=== PATIENT | male | born 2000 | race Caucasian/White ===

== ENCOUNTER 2018-07-24 02:06 | Emergency (ER) | payer OTHER ==
[~2018-07-24] VITALS: Ht 195.6 cm; Wt 120.2 kg
--- OUTSIDE RECORDS SUMMARY | 2018-07-24 02:12 | XMS REPORT | Referral Summary ---
Author Author [facility] Organization [facility] Address Unknown Phone Unavailable Care Team Providers Care Optical Fabricator Name Role Phone Karrie Corcoran PCP Encounter VC Date(s): 03/10/16 - 03/10/16 [facility] [address] [place] [address] Discharge Diagnosis: Well adolescent visit Discharge Disposition: 01-Home or Self Care Attending Physician: Karrie Corcoran MD Vital Signs Most recent to 1 oldest [Reference Range]: Peripheral Pulse 100 bpm Rate [55-90 bpm] *HI* (03/10/16 2:18 PM) Blood Pressure 122/82 mmHg [90-138/45-84 mmHg] (03/10/16 2:18 PM) SpO2 95 % (03/10/16 2:18 PM) Problem List Condition Effective Dates Status Health Status Informant Chicken 10/2006 Resolved pox(Confirmed) Distal radius 04/05/13 Resolved fracture, right(Confirmed) Obesity(Confirmed) Active patient Overweight(Confirmed Resolved ) Allergies, Adverse Reactions, Alerts No Known Allergies Medications Mobic Oral, Daily, 0 Refill(s) Start Date: 03/10/16 Status: Ordered Results No data available for this section Immunizations Vaccine Date Refusal Reason tetanus/diphth/pertuss (Tdap) adult/adol 03/10/10 diphtheria/pertussis, whole cell/tetanus 02/24/04 diphtheria/pertussis, whole cell/tetanus 10/22/99 diphtheria/pertussis, whole cell/tetanus 01/27/99 diphtheria/pertussis, whole cell/tetanus 98 diphtheria/pertussis, whole cell/tetanus 98 haemophilus b conjugate (HbOC) vaccine 08/02/99 haemophilus b conjugate (HbOC) vaccine 01/27/99 haemophilus b conjugate (HbOC) vaccine 98 hepatitis A pediatric vaccine 03/26/13 hepatitis A pediatric vaccine 03/13/12 hepatitis B pediatric vaccine 01/27/99 hepatitis B pediatric vaccine 98 hepatitis B pediatric vaccine 98 human papillomavirus vaccine 03/10/16 influenza virus vaccine, live 08/30/12 measles/mumps/rubella virus vaccine 02/24/04 measles/mumps/rubella virus vaccine 08/02/99 meningococcal conjugate vaccine1 03/23/15 meningococcal conjugate vaccine 03/10/10 meningococcal group B vaccine 03/10/16 poliovirus vaccine, inactivated 02/24/04 poliovirus vaccine, inactivated 10/22/99 poliovirus vaccine, inactivated 98 poliovirus vaccine, inactivated 98 rotavirus vaccine 01/27/99 rotavirus vaccine 98 varicella virus vaccine 08/02/99 1Early/Late Reason: Other : Procedures Procedure Date Related Diagnosis Body Site Ear tubes 09/1999 Tonsillectomy Social History Social History Type Response Smoking Status Never smoker Assessment and Plan Extracted from: Title: 15 YR CPE Author: Karrie Corcoran MD Date: 03/10/16 Assessment/Plan 1.Well adolescent visit Routine health and safety issues were discussed , including seat belts, improving his diet, exercise, dental care, and adolescent behavior. He received Bexsero and Gardasil. Next dose is due in 2 months, 1 month for Bexsero. We talked at length about the need to avoid many health problems with better attention to nutrition. Sports form was signed without restrictions. I will see him back next year. Ordered: Periodic Comp Preventive Med 12 to 17 years Est [address]141 Immunization due
--- OUTSIDE RECORDS SUMMARY | 2018-07-24 02:12 | XMS REPORT | Referral Summary ---
Author Author [facility] Organization [facility] Address Unknown Phone Unavailable Care Team Providers Care Bottle Labeler Name Role Phone Karrie Corcoran PCP Encounter VC Date(s): 08/24/15 - 08/24/15 [facility] [address] [place], [place] [address] Discharge Diagnosis: Melanocytic nevus of face Discharge Disposition: 01-Home or Self Care Attending Physician: Randall Kruger MD Admitting Physician: Randall Kruger MD Referring Physician: Karrie Corcoran MD Vital Signs No data available for this section Problem List Condition Effective Dates Status Health Status Informant Chicken 10/2006 Resolved pox(Confirmed) Distal radius 04/05/13 Resolved fracture, right(Confirmed) Obesity(Confirmed) Active patient Overweight(Confirmed Resolved ) Allergies, Adverse Reactions, Alerts No Known Allergies Medications Mobic Oral, Daily, 0 Refill(s) Start Date: 08/05/15 Status: Ordered Results No data available for [...] vaccine 98 hepatitis B pediatric vaccine 98 influenza virus vaccine, live 08/30/12 measles/mumps/rubella virus vaccine 02/24/04 measles/mumps/rubella virus vaccine 08/02/99 meningococcal conjugate vaccine1 03/23/15 meningococcal conjugate vaccine 03/10/10 poliovirus vaccine, inactivated 02/24/04 poliovirus vaccine, inactivated 10/22/99 poliovirus vaccine, inactivated 98 poliovirus vaccine, inactivated 98 rotavirus vaccine 01/27/99 rotavirus vaccine 98 varicella virus vaccine 08/02/99 1Early/Late Reason: Other : Procedures Procedure Date Related Diagnosis Body Site Excision, other benign lesion including 08/24/15 margins, except skin tag (unless listed elsewhere), face, ears, eyelids, nose, lips, mucous membrane; excised diameter 1.1 to 2.0 cm Repair, intermediate, wounds of face, ears, 08/24/15 eyelids, nose, lips and/or mucous membranes; 2.6 cm to 5.0 cm Ear tubes 09/1999 Tonsillectomy Social History Social History Type Response Smoking Status Never smoker Assessment and Plan Extracted from: Title: Office Visit Note Author: Randall Kruger MD Date: 08/24/15 Assessment/Plan 1.Melanocytic nevus of face Here for excision of the changing and dark nevus on the right jawline. I excised the 1 cm lesionwith 2 mm margins for an excised diameter 1.4 cm in greatest dimension. I did an intermediate layered closure with buried 4-0 Vicryl and top5-0 Prolene with a final wound repair length of 3cm. He'll follow-up in one week for suture removal or sooner for problems Options/risks/benefits of the procedure were discussed and explained and consent was obtained. Specifically discussed risks of scarring, abnormal scarring, skin changes such as color or texture changes, recurrence, incomplete removal, bleeding, infection, need for further treatment, and other unexpected risks/outcomes of these types of skin procedures. Final timeout performed. Site(s) for excision were prepared by cleaning and injecting each site with < 5cc of buffered lidocaine with epi 1:100,000. Site was excised with margins with scalpel/scissors/forceps in usual fashion to the level of the subcutaneous fat. Wound edges were undermined. Hemostasis was obtained with hyfrecation as needed. Layered closure was performed with buried absorbable dermal sutures extending to the deeper subcutaneous tissue and top nonabsorbable sutures. Ointment and bandages placed where needed. Wound care instructions given. Ordered: Exc Dony Les Face Ear Nose 1.1-2.0cm 77883 Intermediate Repair Wounds; Face Ears Eyelids Nose Lips 2.6-5.0cm [id number]
--- OUTSIDE RECORDS SUMMARY | 2018-07-24 02:12 | XMS REPORT | Referral Summary ---
Author Author [facility] Organization [facility] Address Unknown Phone Unavailable Care Team Providers Care Record Maker Name Role Phone Karrie Corcoran PCP Encounter VC Date(s): 08/05/15 - 08/05/15 [facility] [address] [place], [place] [address] Discharge Diagnosis: Melanocytic nevi of face Discharge Disposition: 01-Home or Self [...] Visit Note Author: Randall Kruger MD Date: 08/05/15 Assessment/Plan 1.Melanocytic nevi of face We discussed options andopted for excisional biopsyof the larger darker lesion on the right jawline. He schedule a 30 minute excision slot Ordered: Office Visit Level 2 [facility] [id number]
--- OUTSIDE RECORDS SUMMARY | 2018-07-24 02:12 | XMS REPORT | Referral Summary ---
Author Author [facility] Organization [facility] Address Unknown Phone Unavailable Care Team Providers Care Pharmaceutical Laboratory Technician Name Role Phone Karrie Corcoran PCP Encounter VC Date(s): 03/23/15 - 03/23/15 [facility] [address] [place], [place] [address] Discharge Diagnosis: Need for meningococcal vaccination Discharge Diagnosis: Well child check Discharge Disposition: 01-Home or Self Care Attending Physician: Karrie Corcoran MD Admitting Physician: Karrie Corcoran MD Referring Physician: Karrie Corcoran MD Vital Signs Most recent to 1 oldest [Reference Range]: Blood Pressure 121/80 mmHg [90-138/45-84 mmHg] (03/23/15 2:17 PM) Problem List Condition Effective Dates Status [...] smoker Assessment and Plan Extracted from: Title: 14 YR CPE Author: Karrie Corcoran MD Date: 03/23/15 Assessment/Plan 1.Well child check Routine health and safety issues were discussed, including the need for wearing his seatbelt all times in the car. Home safety , adolescent issues, diet, and dental care. He received Menveo today. When football starts, his acne will likely worsen, so I urged him to use his medication every day. Otherwise I have no concerns, and we'll see him yearly or as needed. Ordered: Periodic Comp Preventive Med 12 to 17 years Est [address] Need for meningococcal vaccination
--- OUTSIDE RECORDS SUMMARY | 2018-07-24 02:12 | XMS REPORT | Referral Summary ---
Author Author [facility] Organization [facility] Address Unknown Phone Unavailable Care Team Providers Care Cranberry Grower Name Role Phone Karrie Corcoran PCP Encounter VC Date(s): 07/08/16 - 07/08/16 [facility] [address] [place] [address] [facility] Discharge Disposition: 01-Home or Self Care Attending Physician: Nader Young Attending Physician: Provider, Immediate Care Admitting Physician: Provider, Immediate Care Vital Signs Most recent to 1 oldest [Reference Range]: Peripheral Pulse 79 bpm Rate [55-90 bpm] (07/08/16 5:49 PM) Blood Pressure 159/75 mmHg [90-138/45-84 mmHg] *HI* (07/08/16 5:49 PM) SpO2 97 % (07/08/16 5:49 PM) Problem List Condition Effective Dates Status Health Status Informant Chicken 10/2006 Resolved pox(Confirmed) Distal radius 04/05/13 Resolved fracture, right(Confirmed) Obesity(Confirmed) Active patient Overweight(Confirmed Resolved ) Allergies, Adverse Reactions, Alerts No Known Allergies Medications erythromycin 0.5% ophthalmic ointment 0.5 inch, Eye-Right, QID, X 7 days, # 3 g, 0 Refill(s) Start Date: 07/08/16 Stop Date: 07/15/16 Status: Ordered Mobic Oral, Daily, 0 Refill(s) Start Date: 03/10/16 Status: Ordered Lacon 5 mg-325 mg oral tablet 1 tabs, Oral, q6hr, X 2 days, # 8 tabs, 0 Refill(s) Start Date: 07/08/16 Stop Date: 07/10/16 Status: Ordered Results No data available for [...] Smoking Status Never smoker Assessment and Plan No data available for this section
--- OUTSIDE RECORDS SUMMARY | 2018-07-24 02:12 | XMS REPORT | Referral Summary ---
Author Author [facility] Organization [facility] Address Unknown Phone Unavailable Encounter VC TIERNEY [id number] Date(s): 08/09/17 - 08/09/17 [facility] [address] [place] [address] [facility] Discharge Diagnosis: Otitis externa Discharge Disposition: 01-Home or Self Care Attending Physician: Provider, Immediate Care Admitting Physician: Provider, Immediate Care Vital Signs Most recent to 1 oldest [Reference Range]: Temperature Oral 36.6 degC [35.8-37.3 degC] (08/09/17 6:27 PM) Peripheral Pulse 91 bpm Rate [60-100 bpm] (08/09/17 6:27 PM) Blood Pressure 120/78 mmHg [90-140/60-90 mmHg] (08/09/17 6:27 PM) SpO2 96 % (08/09/17 6:27 PM) Problem List Condition Effective Dates Status Health Status Informant Chicken 10/2006 Resolved pox(Confirmed) Distal radius 04/05/13 Resolved fracture, right(Confirmed) Obesity(Confirmed) Active patient Overweight(Confirmed Resolved ) Allergies, Adverse Reactions, Alerts No Known Allergies Medications Maxitrol ophthalmic suspension See Instructions, 3 drops right ear BID x 10 day, # 5 mL, 0 Refill(s) Start Date: 08/09/17 Status: Ordered Results No data available for this section Immunizations Given and Recorded Vaccine Date Status Refusal Reason human papillomavirus vaccine 03/10/16 Given meningococcal group B vaccine 03/10/16 Given meningococcal conjugate vaccine1 03/23/15 Given meningococcal conjugate vaccine 03/10/10 Given hepatitis A pediatric vaccine 03/26/13 Given hepatitis A pediatric vaccine 03/13/12 Given influenza virus vaccine, live 08/30/12 Given tetanus/diphth/pertuss (Tdap) adult/adol 03/10/10 Recorded poliovirus vaccine, inactivated 02/24/04 Recorded poliovirus vaccine, inactivated 10/22/99 Given poliovirus vaccine, inactivated 98 Given poliovirus vaccine, inactivated 98 Recorded diphtheria/pertussis, whole cell/tetanus 02/24/04 Recorded diphtheria/pertussis, whole cell/tetanus 10/22/99 Recorded diphtheria/pertussis, whole cell/tetanus 01/27/99 Recorded diphtheria/pertussis, whole cell/tetanus 98 Recorded diphtheria/pertussis, whole cell/tetanus 98 Recorded measles/mumps/rubella virus vaccine 02/24/04 Given measles/mumps/rubella virus vaccine 08/02/99 Given varicella virus vaccine 08/02/99 Given haemophilus b conjugate (HbOC) vaccine 08/02/99 Given haemophilus b conjugate (HbOC) vaccine 01/27/99 Given haemophilus b conjugate (HbOC) vaccine 98 Given rotavirus vaccine2 01/27/99 Given rotavirus vaccine 01/27/99 Given rotavirus vaccine 98 Given rotavirus vaccine3 98 Given hepatitis B pediatric vaccine 01/27/99 Given hepatitis B pediatric vaccine 98 Given hepatitis B pediatric vaccine 98 Given 1Early/Late Reason: Other : 2Result Comment: [08/04/2014 Uncharted] Duplicate - DP 3Result Comment: [08/04/2014 Uncharted] Abstracting Error - DP Procedures Procedure Date Related Diagnosis Body Site Ear tubes 09/1999 Tonsillectomy Social History Social History Type Response Smoking Status Never smoker entered on: 08/05/15 Assessment and Plan Extracted from: Title: Office Visit Note Author: Bharath La MD Date: 08/09/17 Otitis externa Maxitrol drops (3) BID x 10 days. RTC in 1 week to assess for resolution or sooner. All questions answered and patient and/or guardian voice understanding. With hx of q-tip use could also be associated with trauma. Ordered: Office Visit Level 3 Est 386[address]
--- OUTSIDE RECORDS SUMMARY | 2018-07-24 02:12 | XMS REPORT | Referral Summary ---
Author Author [facility] Organization [facility] Address Unknown Phone Unavailable Care Team Providers Care Fastener Technologist Name Role Phone Karrie Corcoran PCP Encounter VC Date(s): 02/13/17 - 02/13/17 [facility] [address] [place], [place] [address] Discharge Diagnosis: Elbow tendonitis Discharge Disposition: 01-Home or Self Care Attending Physician: Jackie Cheung APRN Admitting Physician: Jackie Cheung APRN Vital Signs Most recent to 1 oldest [Reference Range]: Peripheral Pulse 88 bpm Rate [60-100 bpm] (02/13/17 2:14 PM) Blood Pressure 120/78 mmHg [90-140/60-90 mmHg] (02/13/17 2:14 PM) SpO2 94 % (02/13/17 2:14 PM) Problem List Condition Effective Dates Status Health Status Informant Chicken 10/2006 Resolved pox(Confirmed) Distal radius 04/05/13 Resolved fracture, right(Confirmed) Obesity(Confirmed) Active patient Overweight(Confirmed Resolved ) Allergies, Adverse Reactions, Alerts No Known Allergies Medications No Known Medications Results No data available for this section Immunizations Given and Recorded Vaccine Date Status Refusal Reason tetanus/diphth/pertuss (Tdap) adult/adol 03/10/10 Recorded diphtheria/pertussis, whole cell/tetanus 02/24/04 Recorded diphtheria/pertussis, whole cell/tetanus 10/22/99 Recorded diphtheria/pertussis, whole cell/tetanus 01/27/99 Recorded diphtheria/pertussis, whole cell/tetanus 98 Recorded diphtheria/pertussis, whole cell/tetanus 98 Recorded haemophilus b conjugate (HbOC) vaccine 08/02/99 Given haemophilus b conjugate (HbOC) vaccine 01/27/99 Given haemophilus b conjugate (HbOC) vaccine 98 Given hepatitis A pediatric vaccine 03/26/13 Given hepatitis A pediatric vaccine 03/13/12 Given hepatitis B pediatric vaccine 01/27/99 Given hepatitis B pediatric vaccine 98 Given hepatitis B pediatric vaccine 98 Given human papillomavirus vaccine 03/10/16 Given influenza virus vaccine, live 08/30/12 Given measles/mumps/rubella virus vaccine 02/24/04 Given measles/mumps/rubella virus vaccine 08/02/99 Given meningococcal conjugate vaccine1 03/23/15 Given meningococcal conjugate vaccine 03/10/10 Given meningococcal group B vaccine 03/10/16 Given poliovirus vaccine, inactivated 02/24/04 Recorded poliovirus vaccine, inactivated 10/22/99 Given poliovirus vaccine, inactivated 98 Given poliovirus vaccine, inactivated 98 Recorded rotavirus vaccine2 01/27/99 Given rotavirus vaccine 01/27/99 Given rotavirus vaccine 98 Given rotavirus vaccine3 98 Given varicella virus vaccine 08/02/99 Given 1Early/Late Reason: Other : 2Result Comment: [08/04/2014 Uncharted] Duplicate - DP 3Result Comment: [08/04/2014 Uncharted] Abstracting Error - DP Procedures Procedure Date Related Diagnosis Body Site Ear tubes 09/1999 Tonsillectomy Social History Social History Type Response Smoking Status Never smoker Assessment and Plan Extracted from: Title: Office Visit Note Author: Jackie Cheung APRN Date: 02/13/17 Assessment/Plan 1.Elbow tendonitis Steroid shot done in office to reduce inflammation of right elbow RICE: rest, ice, compression, elevation. Discussed ibuprofen dosage. Follow-up if symptoms worsen or persist, or if further concerns. Discussed Physical Therapy
--- OUTSIDE RECORDS SUMMARY | 2018-07-24 02:12 | XMS REPORT | Referral Summary ---
Author Author [facility] Organization [facility] Address Unknown Phone Unavailable Care Team Providers Care Oracle Technical Developer Name Role Phone Karrie Corcoran PCP Encounter VC Date(s): 07/09/15 - 07/09/15 [facility] [address] [place], [place] [address] Discharge Diagnosis: Atypical nevus of face Discharge Diagnosis: Viral gastroenteritis Discharge Disposition: 01-Home or Self Care Attending Physician: Karrie Corcoran MD Admitting Physician: Karrie Corcoran MD Vital Signs Most recent to 1 oldest [Reference Range]: Temperature Oral 36.9 degC [36.0-37.6 degC] (07/09/15 11:16 AM) Peripheral Pulse 95 bpm Rate [55-90 bpm] *HI* (07/09/15 11:16 AM) Blood Pressure 128/84 mmHg [90-138/45-84 mmHg] (07/09/15 11:16 AM) SpO2 96 % (07/09/15 11:16 AM) Problem List Condition Effective Dates Status Health Status Informant Chicken 10/2006 Resolved pox(Confirmed) Distal radius 04/05/13 Resolved fracture, right(Confirmed) Obesity(Confirmed) Active patient Overweight(Confirmed Resolved ) Allergies, Adverse Reactions, Alerts No Known Allergies Medications ibuprofen 200 mg oral tablet 2 tabs, Oral, q4hr, as needed for pain, # 120 tabs, 0 Refill(s) Start Date: 08/06/14 Status: Ordered Pepto-Bismol QID, 0 Refill(s) Start Date: 07/09/15 Status: Ordered Tylenol Caplet mg, Oral, q4hr, 0 Refill(s) Start Date: 07/09/15 Status: Ordered Zofran 8 mg oral tablet 8 mg 1 tabs, Oral, q8hr, as needed for nausea/vomiting, X 2 days, # 6 tabs, 0 Refill(s), Pharmacy: [facility] #[id number], 1 tabs Oral q8hr,x2 days,PRN:as needed for nausea/vomiting Start Date: 07/09/15 Stop Date: 07/11/15 Status: Ordered Results No data available for [...] Site Ear tubes 09/1999 Tonsillectomy Social History No data available for this section Assessment and Plan Extracted from: Title: VOMITING/DIARRHEA Author: Karrie Corcoran MD Date: 07/09/15 Assessment/Plan 1.Viral gastroenteritis Rx was sent for Zofran 8 mg tablets for the nausea /vomiting. I think that eating the tacos yesterday likely caused his worsening symptoms, when he was improving. I suggest a bland diet for the next few days. They are to call if he does not improve in the next 2-3 days, or sooner if he worsens. We also talked about his weight and health risks that increasing weight causes. I would like for him to have fasting lab done, and orders are entered. Ordered: Office Visit Level 4 Est 80538 2.Atypical nevus of face He is referred to Dermatology for evaluation of his facial nevus. Ordered: Office Visit Level 4 Est 24095 Orders: ondansetron, 8 mg 1 tabs, Oral, q8hr, as needed for nausea/vomiting, X 2 days, # 6 tabs, 0 Refill(s), Pharmacy: [facility] #[id number], 1 tabs Oral q8hr,x2 days,PRN:as needed for nausea/vomiting
--- OUTSIDE RECORDS SUMMARY | 2018-07-24 02:13 | XMS REPORT | Continuity of Care Document ---
Author Author Jewell VELIZ R Karrie [facility] Ambulatory Address [address] [place] [address] Phone Care Team Providers Care Deck Builder Name Role Phone Karrie Corcoran PP Unavailable Payers Payer name Insurance type Covered republican ID Authorization(s) Unknown Problems Condition Effective Dates (start - stop) Clinical Status Cough - *Acute Impetigo - *Poor control Torticollis, unspecified - *Acute TORUS FX RADIUS/ULNA-ISA - Improved Pain, joint, multiple sites - *Acute Fracture of unspecified part of ulna (alone), closed - *Fair Control Wrist fracture, right - *Acute Routine infant or child health check - Routine OVERWEIGHT - Family History Family Member Diagnosis Age At Onset Status Mother (Unknown) Obesity Yes Sister (Unknown) Obesity Yes Mother, sister (Alive) Obesity (Unknown) Maternal grandfather (Unknown) Hyperlipidemia Yes Sister (Unknown) Migraines Yes Maternal grandmother (Unknown) Hypertension Yes Maternal grandfather (Unknown) Obesity Yes Mother (Unknown) Migraines Yes Maternal grandfather (Unknown) Diabetes Yes Maternal grandmother (Unknown) Heart disease Yes Social History Social History Element Description Quantity Unknown Allergies, Adverse Reactions, Alerts Substance Reaction Severity Status Unknown Medications Medication Instructions Dosage Effective Dates (start - stop) Status promethazine-DM 6.25 mg-15 mg/5 mL syrup take 5 milliliter by oral route every 8 hours as needed 0 - Active Immunizations Vaccine Date Status Comments Influenza virus vaccine, intranasal completed hep A (ped/adol, 2 dose) completed Hep A (ped/adol, 2 dose) completed Hib (HbOC) completed - Completed reason: source unspecified Hib (HbOC) completed - Completed reason: source unspecified Hib (HbOC) completed - Completed reason: source unspecified RotaTeq (Rotavirus 3 dose) completed - Completed reason: source unspecified RotaTeq (Rotavirus 3 dose) completed - Completed reason: source unspecified RotaTeq (Rotavirus 3 dose) completed - Completed reason: source unspecified RotaTeq (Rotavirus 3 dose) completed - Completed reason: source unspecified DTP completed - Completed reason: source unspecified DTP completed - Completed reason: source unspecified DTP completed - Completed reason: source unspecified DTP completed - Completed reason: source unspecified DTP completed - Completed reason: source unspecified MMR completed - Completed reason: source unspecified MMR completed - Completed reason: source unspecified polio, inactivated (IPV) completed - Completed reason: source unspecified polio, inactivated (IPV) completed - Completed reason: source unspecified Tdap (Boostrix ) completed - Completed reason: source unspecified varicella completed - Completed reason: source unspecified MCV4 completed - Completed reason: source unspecified hep B (ped/adol, 3 dose) completed - Completed reason: source unspecified hep B (ped/adol, 3 dose) completed - Completed reason: source unspecified hep B (ped/adol, 3 dose) completed - Completed reason: source unspecified Results Test Name Date and Time Measure Units Reference Range Abnormal Flag Comments Unknown Vital Signs Date / Time: Height Weight Pulse Rate Blood Pressure Temperature /19:37:00 62.25 in 228.00 lbs 90 /min 121/75 mm[Hg] 97.1 F Procedures Procedure Date Unknown Encounters Encounter Location Date Patient Visit [facility] Patient Visit [facility] Patient Visit [facility] E21 Peds Patient Visit [facility] E21 Peds Patient Visit [facility] Ortho Patient Visit [facility] E21 Peds Patient Visit [facility] Ortho Patient Visit [facility] Care Patient Visit [facility] Peds Patient Visit Conversion Patient Visit Conversion Advance Directives Directive Effective Date Unknown
--- OUTSIDE RECORDS SUMMARY | 2018-07-24 02:13 | XMS REPORT | Continuity of Care Document ---
Author Author Noe IZQUIERDO, [facility] Ambulatory Address [address] [place] [address] Phone Care Team Providers Care Enrollment Management Coordinator Name Role Phone Karrie Corcoran PP Unavailable Payers Payer name Insurance type Covered alliance party ID Authorization(s) Unknown Problems Condition Effective Dates (start - stop) Clinical Status Fracture of unspecified part of ulna (alone), closed - *Fair Control Impetigo - *Poor control Torticollis, unspecified - *Acute TORUS FX RADIUS/ULNA-ISA - Improved Pain, joint, multiple sites - *Acute Wrist fracture, right - *Acute Routine infant or child health check - Routine Cough - *Acute OVERWEIGHT - Family History Family Member Diagnosis [...] Height Weight Pulse Rate Blood Pressure Temperature /10:24:00 62.25 in 218.00 lbs Procedures Procedure Date Unknown Encounters Encounter Location Date Patient Visit [facility] FC Ortho Patient Visit [facility] Mur Imm Care Patient Visit [facility] E21 Peds Patient Visit [facility] E21 Peds Patient Visit [facility] Ortho Patient Visit [facility] E21 Peds Patient Visit [facility] Imm Care Patient Visit [facility] E21 Peds Patient Visit [facility] Mur Imm Care Patient Visit Conversion Patient Visit Conversion Advance Directives Directive Effective Date Unknown
--- OUTSIDE RECORDS SUMMARY | 2018-07-24 02:13 | XMS REPORT | Continuity of Care Document ---
Author Author [facility] Organization [facility] Address Unknown Phone Unavailable Allergies Active Description Code Type Severity Reaction Onset Reported/Identified Relationship to Patient Clinical Status Yes NKDA N/A N/A Yes No Known Allergies NKMA N/A N/A 02/24/2014 Medications Medication Packaging Start Date Stop Date Route Dosage Sig triamcinolone topical(triamcinolone 0.1% topical ointment) 1 sukh 05/26/2014 06/07/2014 Topical 1 sukh, Topical, TID, 15 g ibuprofen(ibuprofen 200 mg oral tablet) 2 tabs 08/06/2014 08/05/2015 Oral 400 mg 2 tabs, Oral, q4hr, 120 tabs, PRN: as needed for pain bismuth subsalicylate(Pepto-Bismol) 07/09/2015 08/05/2015 QID, 0 Refill(s) ondansetron(Zofran 8 mg oral tablet) 1 tabs 07/09/2015 07/11/2015 Oral 8 mg 8 mg=1 tabs, Oral, q8hr, for 2 days, PRN: as needed for nausea/vomiting, 6 tabs, 0 Refill(s) meloxicam(Mobic) 08/05/2015 03/10/2016 Oral Oral, Daily, 0 Refill(s) meningococcal group B vaccine(Bexsero intramuscular suspension) 0.5 mL 03/10/2016 03/10/2016 IntraMuscular 0.5 mL, IntraMuscular, Once meloxicam(Mobic) 03/10/2016 02/13/2017 Oral Oral, Daily, 0 Refill(s) erythromycin ophthalmic(erythromycin 0.5% ophthalmic ointment) 0.5 inch 07/08/2016 07/15/2016 Eye-Right 0.5 inch, Eye-Right, QID, for 7 days, 3 g, 0 Refill(s) HYDROcodone-acetaminophen(Boyd 5 mg-325 mg oral tablet) 1 tabs 07/08/2016 07/10/2016 Oral 1 tabs, Oral, q6hr, for 2 days, 8 tabs, 0 Refill(s) triamcinolone(triamcinolone acetonide 40 mg/mL injectable suspension) 02/13/2017 02/13/2017 IntraMuscular 60 mg 60 mg, IntraMuscular, Once BACTROBAN 05/01/2017 External 22 3 times a day BACTRIM DS 05/01/2017 ORAL 20 twice daily neomycin/polymyxin B/dexamethasone ophth(Maxitrol ophthalmic suspension) 08/09/2017 See Instructions, 3 drops right ear BID x 10 day, 5 mL, 0 Refill(s) VENTOLIN HFA 09/02/2017 Inhalation 1 four times daily PROAIR HFA 09/02/2017 Inhalation 1 four times daily PREDNISONE 09/02/2017 ORAL 5 daily MONTELUKAST SODIUM 09/02/2017 ORAL 30 daily BENZONATATE 09/02/2017 ORAL 30 three times daily Problems Date Dx Coded Attending Type Code Diagnosis Diagnosed By 01/16/2014 216.7 Neop, bng, skin, leg WAGNER LAM 01/16/2014 706.1 Acne NEC WAGNER LAM 02/11/2014 [employer] DX KYRA Baez, GIUSEPPE A 02/24/2014 216.7 Neop, bng, skin, leg KYRA Baez, CARMELITAER A 03/08/2014 V58.32 Suture Removal ANCELMO LARKIN 03/17/2014 V58.32 Suture Removal YARA ORTEGA 06/03/2014 216.5 Neop, bng, skin, trunk PRINCESS WILLSON R 06/03/2014 706.1 Acne NEC PRINCESS WILLSON R 07/01/2014 MLTPS Multiple Statement Billing Fee KYRA Baez, GIUSEPPE A 08/05/2014 MLTPS Multiple Statement Billing Fee KYRA Baez, CARMELITAER A 09/02/2014 MLTPS Multiple Statement Billing Fee KYRA Baez, CARMELITAER A 09/30/2014 MLTPS Multiple Statement Billing Fee KYRA Baez, CARMELITAER A 02/23/2015 216.3 Neop, bng, skin, face NEC WAGNER LAM 02/23/2015 216.4 Neop, bng, scalp/skin, neck WAGNER LAM 02/23/2015 216.5 Neop, bng, skin, trunk WAGNER LAM 02/23/2015 216.7 Neop, bng, skin, leg WAGNER LAM 02/23/2015 706.1 Acne NEC WAGNER LAM Lior 03/10/2016 Karrie Corcoran Final Z00.129 Encounter for routine child health examination without abnormal findings 07/08/2016 Nader Young Final S05.00XA Injury of conjunctiva and corneal abrasion without foreign body, unspecified eye, initial encounter 02/13/2017 Jackie Cheung Final M77.8 Other enthesopathies, not elsewhere classified 08/09/2017 Final H60.90 Unspecified otitis externa, unspecified ear Procedures Code [place] [address] Level III new patient office visit WAGNER LAM Lior 10/14/2013 92171 Level IV established patient office visit WAGNER LAM Lior 2013 CONTW Short Contour Walker Boot Small/Med/Large GIUSEPPE RAE M.D. 03/2014 66804 Postoperative follow-up visit, included in global service ANCELMO LARKIN 03/10/2014 49898 Postoperative follow-up visit, included in global service YARA ORTEGA 03/17/2014 51398 Level III established patient office visit PRINCESS WILLSON 2013 10309 Excision, benign lesion including margins, except skin tag (unless listed elsewhere), trunk, arms or GIUSEPPE RAE M.D. 10/17/2014 85142 Repair, complex, scalp, arms , and/or legs; 2.6 cm to 7.5 cm GIUSEPPE RAE M.D. 10/17/2014 17638 Level IV - Surgical pathology, gross and microscopic examination GIUSEPPE RAE M.D. 10/17/2014 MLTPS Multiple Statement Billing Fee GIUSEPPE RAE M.D. 10/17/2014 76256 Office or other outpatient visit for the evaluation and management of an established patient, which requires at least 2 of these 3 kaminski components: An expanded problem focused history; An expanded prob 07/08/2016 50311 Office or other outpatient visit for the evaluation and management of an established patient, which requires at least 2 of these 3 kaminski components: An expanded problem focused history; An expanded prob 02/13/2017 90794 Office or other outpatient visit for the evaluation and management of an established patient, which requires at least 2 of these 3 kaminski components: An expanded problem focused history; An expanded prob 08/09/2017 Results There is no data. Encounters ACCT No. Visit Date/Time Discharge Status Pt. Type Provider Facility Loc./Unit Complaint [id number] 08/09/2017 18:20:00 08/09/2017 23:59:00 DIS Outpatient [facility] Mur IC ICM DBL EAR ACHE [id number] 02/13/2017 14:02:00 02/13/2017 23:59:00 DIS Outpatient Jackie Cheung [address] [place] [id number] Peds ARM PAIN [id number] 07/08/2016 17:44:00 07/08/2016 23:59:00 DIS Outpatient Nader Young [facility] Mur IC EYE PAIN [id number] 03/10/2016 14:02:00 03/10/2016 23:59:00 DIS Outpatient Karrie Corcoran [address] [place] [address] Peds wce [id number] 08/24/2015 13:30:00 08/24/2015 23:59:00 DIS Outpatient Randall Kruger [address] [place] [id number] Derm excision rt jawline [id number] 08/05/2015 14:29:00 08/05/2015 23:59:00 DIS Outpatient Randall Kruger [address] [place] [id number] Derm NPV SUSPISIOUS MOLE ON FACE [id number] 07/09/2015 11:09:00 07/09/2015 23:59:00 DIS Outpatient Karrie Corcoran [address] [place] [address] Peds VOMITING DIARRHEA [id number] 03/23/2015 14:13:00 03/23/2015 23:59:00 DIS Outpatient Karrie Corcoran [address] [place] [address] Peds PHY [id number] 08/06/2014 15:00:00 08/06/2014 23:59:00 DIS Outpatient Dimitris Ruiz Rosana [facility] Ortho RT WRIST PAIN [id number] 08/10/2017 05:17:51 Document Registration [id number] 02/14/2017 05:16:32 Document Registration [id number] 07/09/2016 05:15:53 Document Registration [id number] 03/11/2016 05:16:03 Document Registration [id number] 08/06/2015 05:16:42 Document Registration [id number] 07/10/2015 05:17:15 Document Registration [id number] 05/27/2015 10:50:34 Document Registration [id number] 05/27/2015 10:16:54 Document Registration [id number] 10/10/2013 19:35:00 10/10/2013 23:59:59 CLS Outpatient [id number] 09/16/2013 10:24:00 09/16/2013 23:59:59 CLS Outpatient [id number] 04/19/2017 16:02:00 Document Registration [id number] 05/02/2017 06:10:00 Document Registration
--- NOTE | 2018-07-24 02:27 | ED Head Injury ---
General Stated Complaint: HEAD LAC Source: patient Exam Limitations: no limitations History of Present Illness Date Seen by Provider: Jul 24, 2018 Time Seen by Provider: 02:13 Initial Comments This 17-year-old young man presents to the emergency room with laceration and bleeding of the occiput. He was wrestling with a friend when he struck his head on the edge of a coffee table. There was significant bleeding at the time. It is no longer bleeding. He denies any loss of consciousness. He denies any signs of concussion at this time including nausea, confusion, change in vision, etc. He did feel a little dazed at the time of injury. He ambulates into the exam room on his own power without any difficulty. He is incidentally noted to be tachycardic but he is anxious at this time and he has just engaged in strenuous activity with intensive wrestling.. He denies any other injury. Allergies and Home Medications Patient Home Medication List Home Medication List Reviewed: Yes Review of Systems Review of Systems Constitutional: no symptoms reported Eyes: No Symptoms Reported Ears, Nose, Mouth, Throat: no symptoms reported Respiratory: no symptoms reported Cardiovascular: see HPI Gastrointestinal: no symptoms reported Genitourinary: no symptoms reported Musculoskeletal: no symptoms reported Skin: see HPI Psychiatric/Neurological: See HPI Endocrine: No Symptoms Reported Hematologic/Lymphatic: No Symptoms Reported Past Nxbczjo-Yquijr-Ojmwvn Hx Past Med/Social Hx: Reviewed Nursing Past Med/Soc Hx Patient Social History Recent Foreign Travel: No Contact w/Someone Who Travel: No Past Medical History Surgeries: Yes (Lesion or mass removed from the face as a child) Respiratory: No Cardiac: No Neurological: No Reproductive Disorders: No Genitourinary: No Gastrointestinal: No Musculoskeletal: No Endocrine: No HEENT: No Cancer: No Did You Recieve Any Treatments: No Psychosocial: No Physical Exam Vital Signs Vital Signs - First Documented 07/24/18 07/24/18 02:17 02:29 Temp 98.7 Pulse 122 Resp 19 B/P (MAP) 147/97 Pulse Ox 98 O2 Delivery Room Air Capillary Refill : Height, Weight, BMI Height: '" Weight: lbs. oz. kg; BMI Method: General Appearance: WD/WN, no apparent distress HEENT: PERRL/EOMI, other (There is a small crushtype laceration on the occiput that is no longer actively bleeding. The skin in that location as very tender to the touch. Underlying bone appears intact upon palpation.) Neck: non-tender, normal inspection Cardiovascular: no edema, no murmur, tachycardia Respiratory: lungs clear, normal breath sounds, no respiratory distress, no accessory muscle use Extremities: normal inspection, no pedal edema Psychiatric: alert, oriented x 3 Crainal Nerves: normal hearing, normal speech, PERRL Coordination/Gait: normal gait Motor/Sensory: no motor deficit, no sensory deficit Skin: normal color, other (Mildly sweaty) Dash Coma Score Best Eye Response: (4) Open Spontaneously Best Verbal Response: (5) Oriented Best Motor Response: (6) Obeys Commands Dash Total: 15 Progress/Results/Core Measures Progress Progress Note : Progress Note Repair was not necessary. Patient was up-to-date on tetanus. Return precautions discussed. Departure Impression Primary Impression: Minor head injury Qualified Codes: S09.90XA - Unspecified injury of head, initial encounter Additional Impression: Scalp laceration Qualified Codes: S01.01XA - Laceration without foreign body of scalp, initial encounter Disposition: 01 HOME, SELF-CARE Condition: Improved Departure-Patient Inst. Decision time for Depature: 02:24 Referrals: NO,LOCAL PHYSICIAN (PCP/Family) Primary Care Physician Patient Instructions: Minor Head Injury Add. Discharge Instructions: For pain you may take ibuprofen up to 600 mg every 6 hours and/or Tylenol ( acetaminophen) up to 1000 mg every 6 hours as needed. You also may apply ice in 20 minute intervals to the affected area to reduce pain and swelling. If bleeding continues, apply direct to gentle pressure for 20 minutes. Monitor for signs of worsening concussion or neurologic problems such as changes in vision, nausea and vomiting, confusion, numbness or tingling of any body part, worsening headache, etc. Return to care if you notice the symptoms. You may shower and allow soapy water to run over the wound. However, do not scrub directly over the wound. HOWARD KAPOOR MD Jul 24, 2018 02:27
== END 2018-07-24 02:34 | disposition home or self-care (01) ==
LOC: ER 02:07
DX: S09.90XA Unspecified injury of head, initial encounter (principal); S01.01XA Laceration without foreign body of scalp, initial encounter; R40.2142 Coma scale, eyes open, spontaneous, at arrival to emergency department; R40.2252 Coma scale, best verbal response, oriented, at arrival to emergency department; R40.2362 Coma scale, best motor response, obeys commands, at arrival to emergency department; W22.03XA Walked into furniture, initial encounter; Y93.72 Activity, wrestling
CPT/HCPCS: 99282